=== PATIENT | female | born 1955 | race Caucasian/White ===

== ENCOUNTER → 2016-09-22 07:59 | Outpatient (CLI) | payer BC | END | disposition home or self-care (01) | LOC: D.NM 07:59 | DX: K82.9 Disease of gallbladder, unspecified (principal) ==

== ENCOUNTER 2017-11-13 08:00 | Outpatient (CLI) | payer BC | END 2017-11-13 12:03 | disposition home or self-care (01) | LOC: D.MAMMO 08:00 | DX: Z12.31 Encounter for screening mammogram for malignant neoplasm of breast (principal) ==

== ENCOUNTER → 2019-10-02 11:04 | Outpatient (CLI) | payer BC | END | disposition home or self-care (01) | LOC: D.RAD 11:00 | PROVIDERS: ATTEND Internal Medicine Gastroenterology | DX: R93.3 Abnormal findings on diagnostic imaging of other parts of digestive tract (principal) ==